=== PATIENT | female | born 2000 | race Caucasian/White ===

== ENCOUNTER 2024-06-06 13:11 | Outpatient (AMB) | payer BC, SELFPAY ==
--- NOTE | 2024-06-06 13:15 | MHC.OFFWIV ---
Intake Vital Signs 06/06/24 13:21 Height 5 ft Weight 152 lb BMI 29.7 BP 108/60 Blood Pressure Location Lt brachial Position Sitting Pulse 84 Pulse Source Pulse Oximeter Pulse Oximetry (%) 98 Oxygen Delivery Method Room Air Intake Visit Reasons: EP ?UTI Intake Note: Patient here for possible UTI, pt states it started on thursday and has been experiencing frequent urination, burning when urinating. Patient Tobacco Use Status: Never used Tobacco Allergies amoxicillin [AMOXICILLIN] Allergy (Mild, Unverified 06/06/24 13:22) HIVES, anaphylaxis latex Adverse Reaction (Verified 06/06/24 13:22) hives Do you need a note to return to daycare/school/sports/work: No HPI HPI Comments History of Present Illness Details Patient is a 24-year-old female complaining of 3 days of cloudy urine, pain with urination and increased frequency of urination. She states she started developing some low back pain this morning and did notice a little bit of blood in her urine. She denies any fevers [facility] Social History Patient Tobacco Use Status: Never used Tobacco Review of Systems Const All systems reviewed & are unremarkable except as noted in HPI and below Physical Exam Vital Signs: Last Vital Signs Pulse 84 06/06/24 13:21 BP 108/60 06/06/24 13:21 Pulse Ox 98 06/06/24 13:21 Oxygen Delivery Method Room Air 06/06/24 13:21 BMI result Body Mass Index 29.7 Const General: cooperative, healthy appearing, comfortable, no acute distress and well developed Orientation/consciousness: patient oriented x3 Limitations: no limitations HEENT Head: Yes normal to inspection Eyes General: appearance normal, both eyes and all related structures Neck Neck: Yes normal visual inspection and Yes full ROM Resp Effort & Inspection: normal respiratory effort and able to speak in complete sentences Skin General skin exam: no rashes or lesions noted Neuro General: patient oriented x3 Extrem General: Yes normal to inspection Results AMB Urinalysis, Automated UA Leukoctes 125 José/uL Last Edit by TRAM Nguyen on 06/06/24 13:29 UA Nitrite Negative Last Edit by TRAM Nguyen on 06/06/24 13:29 UA Urobilinogen 0.2 mg/dL Last Edit by TRAM Nguyen on 06/06/24 13:29 UA Protein 300 mg/dL Last Edit by Chrystal Guerra [facility] on 06/06/24 13:29 UA pH 6.5 Last Edit by [facility] on 06/06/24 13:29 UA Blood 200 Sher/uL Last Edit by Chrystal Guerra [facility] on 06/06/24 13:29 UA Specific [place] 1.015 Last Edit by Chrystal Guerra [facility] on 06/06/24 13:29 UA Ketone Negative Last Edit by Chrystal Guerra [facility] on 06/06/24 13:29 UA Bilirubin 0 mg/dL Last Edit by Chrystal Guerra [facility] on 06/06/24 13:29 UA Glucose 0 mg/dL Last Edit by Chrystal Guerra [facility] on 06/06/24 13:29 Results Reviewed Results Reviewed: Laboratory Last Values Urine pH (Auto) 6.5 06/06/24 13:28 Specific [place] (Auto) 1.015 06/06/24 13:28 Urine Protein (Auto) 300 mg/dL 06/06/24 13:28 Glucose (UA)(Auto) 0 mg/dL 06/06/24 13:28 Urine Ketones (Auto) Negative 06/06/24 13:28 Urine Blood (Auto) 200 Sher/uL 06/06/24 13:28 Urine Nitrite (Auto) Negative 06/06/24 13:28 Urine Bilirubin (Auto) 0 mg/dL 06/06/24 13:28 Urine Urobilinogen (Auto) 0.2 mg/dL 06/06/24 13:28 Leukocyte Esterase (Auto) 125 José/uL 06/06/24 13:28 Assessment & Plan Assessment & Plan (1) UTI (urinary tract infection): Code(s): N39.0 - Urinary tract infection, site not specified Qualifiers: Urinary tract infection type: acute cystitis Hematuria presence: with hematuria Qualified Code(s): N30.01 - Acute cystitis with hematuria Plan: Sent [facility]ro[facility] pharmacy, recommended she ensure resolution of the blood in her urine when the infection resolves. Orders: Orders AMB Urinalysis Automated Today Z13.9 - Encounter for screening, unspecified Medications: New nitrofurantoin monohyd/m-cryst 100 mg (Macrobid) must administer with a meal/food 100 mg PO Q12H 5 days 10 caps 0RF Coding Level of Care Code New Pt Level 3 (56211) Diagnoses Acute cystitis with hematuria N30.01 Urinary tract infection type: acute cystitis Hematuria presence: with hematuria
[2024-06-06 13:21] VITALS: BP 108/60; PULSE 84; O2SAT 98; BMI 29.7
== END 2024-06-06 14:26 | disposition home or self-care (01) ==
PROVIDERS: Visit Provider Physician Assistant
DX: Z13.9 Encounter for screening, unspecified (principal); N30.01 Acute cystitis with hematuria
CPT/HCPCS: 81003; 99213